=== PATIENT | male | born 1965 | race Caucasian/White ===

== ENCOUNTER 2023-07-25 07:55 | Day surgery (SDC) | payer BC ==
[2023-07-21 13:49] VITALS: BMI 32.3
[2023-07-25] MEDS ORDERED: PROPOFOL 20 ML ONE (11:38)
[2023-07-25] MEDS ORDERED: Rocuronium Bromide 10 MG/ML (10ML VIAL) ONE (11:38)
[2023-07-25] MEDS ORDERED: fentaNYL 50 mcg/mL 1 mL Vial ONE (11:38)
[2023-07-25] MEDS ORDERED: Dexamethasone 20 MG/5 ML VIAL ONE (11:38)
[2023-07-25] MEDS ORDERED: Ondansetron PF 4 MG/2 ML Vial ONE (11:38)
[2023-07-25] MEDS ORDERED: Midazolam HCl 2 mg/2 ml Vial ONE (11:39)
[2023-07-25] MEDS ORDERED: Lidocaine 1% PF 5 ML VIAL ONE (11:39)
[2023-07-25] MEDS ORDERED: EPINEPHrine 1 MG/ML AMP ONE (12:00)
[2023-07-25] MEDS ORDERED: HYDROcodone/Acetaminophen 5/325 mg Tablet ONE (13:07)
== END 2023-07-25 13:45 | disposition home or self-care (01) ==
LOC: CSHSDC 07:55
PROVIDERS: ATTEND Otolaryngology Otolaryngic Allergy
PROC: 0CBT8ZX Excision of Right Vocal Cord, Via Natural or Artificial Opening Endoscopic, Diagnostic (ICD-10-PCS; principal; 2023-07-25)
PROC: 0CBV8ZX Excision of Left Vocal Cord, Via Natural or Artificial Opening Endoscopic, Diagnostic (ICD-10-PCS; principal; 2023-07-25)
DX: D49.1 Neoplasm of unspecified behavior of respiratory system (principal); J38.3 Other diseases of vocal cords; E03.9 Hypothyroidism, unspecified; F17.290 Nicotine dependence, other tobacco product, uncomplicated; K21.9 Gastro-esophageal reflux disease without esophagitis; Z79.890 Hormone replacement therapy; Z79.899 Other long term (current) drug therapy
CPT/HCPCS: 88305; 88342; J0171; J1100; J2250; J2405; J2704; J3010

== ENCOUNTER 2023-12-19 06:26 | Day surgery (SDC) | payer BC ==
[2023-12-18 09:14] VITALS: BMI 30.1
[2023-12-19] MEDS ORDERED: Propofol 1,000 MG/100 ML VIAL IV ONE (07:29)
[2023-12-19] MEDS ORDERED: Dexmedetomidine 200 MCG/2 ML VIAL ONE (07:31)
[2023-12-19] MEDS ORDERED: Ondansetron PF 4 MG/2 ML Vial ONE (08:30)
[2023-12-19] MEDS ORDERED: PROPOFOL 20 ML ONE (08:30)
[2023-12-19] MEDS ORDERED: Midazolam HCl 2 mg/2 ml Vial ONE (08:30)
[2023-12-19] MEDS ORDERED: Glycopyrrolate 0.2 MG/ML 5 ML SYRINGE ONE (08:30)
[2023-12-19] MEDS ORDERED: fentaNYL 50 mcg/mL 1 mL Vial ONE (08:30)
[2023-12-19] MEDS ORDERED: Dexamethasone 20 MG/5 ML VIAL ONE (08:30)
[2023-12-19] MEDS ORDERED: EPINEPHrine 1 MG/ML VIAL ONE (08:58)
[2023-12-19] MEDS ORDERED: Labetalol HCl 100 MG/20 ML VIAL ONE (09:22)
== END 2023-12-19 11:35 | disposition home or self-care (01) ==
LOC: CSHSDC 06:26
PROVIDERS: ATTEND Otolaryngology Otolaryngic Allergy
PROC: 0CBT8ZX Excision of Right Vocal Cord, Via Natural or Artificial Opening Endoscopic, Diagnostic (ICD-10-PCS; principal; 2023-12-19)
PROC: 0CBV8ZX Excision of Left Vocal Cord, Via Natural or Artificial Opening Endoscopic, Diagnostic (ICD-10-PCS; principal; 2023-12-19)
DX: J38.3 Other diseases of vocal cords (principal); E03.9 Hypothyroidism, unspecified; E11.9 Type 2 diabetes mellitus without complications; Z79.890 Hormone replacement therapy; Z79.899 Other long term (current) drug therapy; F17.290 Nicotine dependence, other tobacco product, uncomplicated
CPT/HCPCS: 88305; J0171; J1100; J2250; J2405; J2704; J3010